=== PATIENT | male | born 1970 | race Caucasian/White ===

== ENCOUNTER → 2025-02-03 15:34 | Outpatient (REF) | payer OTHER, SELFPAY | LOC: RAD 15:34 | PROVIDERS: ATTENDING PHYSICIAN Family Medicine | DX: M25.569 Pain in unspecified knee (principal) | CPT/HCPCS: 73564 ==

== ENCOUNTER → 2025-05-01 20:20 | Outpatient (REF) | payer OTHER, SELFPAY | LOC: MRI 20:20 | PROVIDERS: ATTENDING PHYSICIAN Family Medicine Sports Medicine; FAMILY PHYSICIAN Family Medicine | DX: M23.306 Other meniscus derangements, unspecified meniscus, right knee (principal); M17.11 Unilateral primary osteoarthritis, right knee | CPT/HCPCS: 73721 ==